=== PATIENT | male | born 1990 | race African-American/Black ===

== ENCOUNTER 2016-10-08 16:56 | Emergency (ER) | payer SELFPAY ==
[~2016-10-08] VITALS: Ht 172.7 cm; Wt 65.8 kg
[~2016-10-08 16:56] MED LIST: AMOX500T PO; HYDR-971 PO
[2016-10-08 17:51] VITALS: BP 129/61
--- NOTE | 2016-10-08 18:05 | PHYS DOC ---
Past Medical History Past Medical History: No Pertinent History Past Surgical History: No Surgical History Alcohol Use: Occasionally Drug Use: None Adult General Chief Complaint Chief Complaint: UPPER EXTREMITY PAIN HPI HPI Patient is a 26 year old male who presents with right arm pain today and throwing a chair yesterday. No interventions prior to arrival Review of Systems Review of Systems Constitutional: Denies fever or chills Eyes: Denies change in visual acuity, redness, or eye pain HENT: Denies nasal congestion or sore throat Respiratory: Denies cough or shortness of breath Cardiovascular: No additional information not addressed in HPI GI: Denies abdominal pain, nausea, vomiting, bloody stools or diarrhea : Denies dysuria or hematuria Musculoskeletal: Right arm pain Integument: Denies rash or skin lesions Neurologic: Denies headache, focal weakness or sensory changes Endocrine: Denies polyuria or polydipsia [] Allergies Allergies Allergies Coded Allergies Type Severity Reaction Last Updated Verified No Known Drug Allergies 08/26/15 No Physical Exam Physical Exam Constitutional: Well developed, well nourished, no acute distress, non-toxic appearance. HENT: Normocephalic, atraumatic, bilateral external ears normal, oropharynx moist, no oral exudates, nose normal. Eyes: PERRLA, EOMI, conjunctiva normal, no discharge. Neck: Normal range of motion, no tenderness, supple, no stridor. Cardiovascular:Heart rate regular rhythm, no murmur Lungs & Thorax: Bilateral breath sounds clear to auscultation Abdomen: Bowel sounds normal, soft, no tenderness, no masses, no pulsatile masses. Skin: Warm, dry, no erythema, no rash. Back: No tenderness, no CVA tenderness. Extremities: No cyanosis, no clubbing, ROM intact, no edema. Tenderness midshaft humerus Neurologic: Alert and oriented X 3, normal motor function, normal sensory function, no focal deficits noted. Psychologic: Affect normal, judgement normal, mood normal. [] Current Patient Data Vital Signs Vital Signs Date Time Temp Pulse Resp B/P Pulse Ox O2 Delivery O2 Flow Rate FiO2 10/08/16 17:51 98.0 78 14 98 Room Air 98.0 EKG EKG [] Radiology/Procedures Radiology/Procedures [] Impressions: right arm pain Course & Med Decision Making Course & Med Decision Making Pertinent Labs and Imaging studies reviewed. (See chart for details) [] Dragon Disclaimer Dragon Disclaimer This electronic medical record was generated, in whole or in part, using a voice recognition dictation system. Departure Departure Impression: Primary Impression: Strain of upper arm, right Disposition: 01 HOME, SELF-CARE Condition: STABLE Referrals: NO PCP (PCP) Patient Instructions: Muscle Strain, [id number], Musculoskeletal Pain Additional Instructions: Take medication as prescribed. Return if problems or concerns. Follow up with primary doctor in 1-2 days Scripts Cyclobenzaprine Hcl 5 Mg Tablet5 Mg PO TID #20 TAB Prov:LAWRENCE ENG APRN 10/08/16 LAWRENCE ENG APRN Oct 08, 2016 18:05
--- NOTE | 2016-10-08 18:53 | RAD ---
Humerus right Indication: Right arm pain. Alignment at the shoulder and elbow appears normal. The humerus appears intact. No fractures are seen. Impression: No acute bony abnormality is detected. Electronically signed by: Elvis Obrien MD (Oct 08, 2016 18:51:50)
[2016-10-08] MEDS ORDERED: CYCL5TAB PO (19:02)
== END 2016-10-08 19:06 | disposition home or self-care (01) ==
LOC: ER 16:56
DX: S46.911A Strain of unspecified muscle, fascia and tendon at shoulder and upper arm level, right arm, initial encounter (principal); X58.XXXA Exposure to other specified factors, initial encounter; Y93.89 Activity, other specified; Y92.89 Other specified places as the place of occurrence of the external cause; Y99.8 Other external cause status
CPT/HCPCS: 73060; 99284

== ENCOUNTER 2017-03-05 20:52 | Emergency (ER) | payer SELFPAY ==
[~2017-03-05] VITALS: Ht 172.7 cm; Wt 68.0 kg
[~2017-03-05 20:52] MED LIST changes: +CYCL5TAB PO
[2017-03-05 21:08] VITALS: BP 141/60
[2017-03-05] MEDS ORDERED: BENZ100C PO (21:22)
[2017-03-05] MEDS ORDERED: PROAIR RESPICL90 MCG IH (21:22)
[2017-03-05] MEDS ORDERED: AZIT250T PO (21:22)
[2017-03-05] MEDS ORDERED: GUAI-107 PO (21:22)
[2017-03-05] MEDS ORDERED: PRED50TA PO (21:22)
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
[2017-03-05] MEDS ORDERED: predniSONE 20 MG TABLET PO ONE (21:45)
[2017-03-05] MEDS ORDERED: BENZONATATE 100 MG CAPSULE. PO ONE (21:45)
== END 2017-03-05 21:59 | disposition home or self-care (01) ==
LOC: ER 20:52
DX: J20.9 Acute bronchitis, unspecified (principal); J02.8 Acute pharyngitis due to other specified organisms; B97.89 Other viral agents as the cause of diseases classified elsewhere; Z87.891 Personal history of nicotine dependence
CPT/HCPCS: 99284; J7512

== ENCOUNTER 2017-10-08 11:04 | Emergency (ER) | payer SELFPAY ==
[2017-10-08] MEDS: LIDOCAINE WITH 8.4% SOD BICARB 3 ML DISP.SYRIN. INJ ×2 (12:15)
[2017-10-08] MEDS: HYDROcodone/APAP 5/325MG 1 TAB TABLET PO ×2 (12:57)
[2017-10-08] MEDS: DIPHTH,PERTUSS(ACELL),TET TOX 0.5 ML DISP.SYRIN. VAX IM ×2 (13:28)
== END 2017-10-08 13:53 | disposition home or self-care (01) ==
LOC: ER 11:04
DX: S61.411A Laceration without foreign body of right hand, initial encounter (principal); S00.83XA Contusion of other part of head, initial encounter; V87.8XXA Person injured in other specified noncollision transport accidents involving motor vehicle (traffic), initial encounter; Y93.39 Activity, other involving climbing, rappelling and jumping off; Y92.410 Unspecified street and highway as the place of occurrence of the external cause; Y99.8 Other external cause status
CPT/HCPCS: 12001; 70450; 73130; 90471; 90715; 99284-25

== ENCOUNTER 2018-07-18 21:38 | Emergency (ER) | payer SELFPAY ==
[~2018-07-18] VITALS: Ht 172.7 cm; Wt 69.0 kg
[~2018-07-18 21:38] MED LIST changes: +AZIT250T PO; +BENZ100C PO; +GUAI-108 PO; +PRED50TA PO; +PROAIR RESPICL90 MCG IH
[2018-07-18 21:40] VITALS: BP 125/56
[2018-07-18] MEDS ORDERED: AMOX1TAB61 PO (21:54)
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
== END 2018-07-18 22:00 | disposition home or self-care (01) ==
LOC: ER 21:38
DX: S50.871A Other superficial bite of right forearm, initial encounter (principal); W50.3XXA Accidental bite by another person, initial encounter; Y93.89 Activity, other specified; Y92.810 Car as the place of occurrence of the external cause; Y99.8 Other external cause status
CPT/HCPCS: 99283

== ENCOUNTER 2018-07-22 12:28 | Emergency (ER) | payer SELFPAY ==
[~2018-07-22] VITALS: Ht 172.7 cm; Wt 68.9 kg
[~2018-07-22 12:28] MED LIST changes: +AMOX1TAB61 PO; +HYDR-3164 PO; -HYDR-971 PO
[2018-07-22 12:46] VITALS: BP 116/56
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
== END 2018-07-22 13:16 | disposition home or self-care (01) ==
LOC: ER 12:28
DX: S51.851D Open bite of right forearm, subsequent encounter (principal); W54.0XXD Bitten by dog, subsequent encounter
CPT/HCPCS: 99281

== ENCOUNTER 2018-11-26 16:37 | Emergency (ER) | payer SELFPAY ==
[~2018-11-26] VITALS: Ht 172.7 cm; Wt 68.9 kg
[2018-11-26 17:22] VITALS: BP 113/27
[2018-11-26] MEDS ORDERED: HYDROcodone/APAP 5/325MG 1 TAB TABLET PO ONE (18:45)
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
[2018-11-26] MEDS ORDERED: TIZA4TAB8 PO (19:10)
[2018-11-26] MEDS ORDERED: HYDR-3164 PO (19:10)
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
== END 2018-11-26 19:17 | disposition home or self-care (01) ==
LOC: ER 16:37
DX: S46.811A Strain of other muscles, fascia and tendons at shoulder and upper arm level, right arm, initial encounter (principal); X50.9XXA Other and unspecified overexertion or strenuous movements or postures, initial encounter; Y93.89 Activity, other specified; Y92.89 Other specified places as the place of occurrence of the external cause; Y99.8 Other external cause status
CPT/HCPCS: 73030; 73060; 99283

== ENCOUNTER 2019-10-04 06:24 | Emergency (ER) | payer SELFPAY ==
[~2019-10-04] VITALS: Ht 172.7 cm; Wt 65.0 kg
[~2019-10-04 06:24] MED LIST changes: +TIZA4TAB8 PO
[2019-10-04 07:10] VITALS: BP 125/59
--- NOTE | 2019-10-04 07:18 | PHYS DOC ---
Past Medical History Past Medical History: No Pertinent History Past Surgical History: No Surgical History Additional Past Surgical Histo: STATES SX ON HEAD/LACERATION REPAIR Alcohol Use: None Drug Use: None Adult General Chief Complaint Chief Complaint: PENIS PROBLEM HPI HPI Patient is a 29 year old male who presented to ER today for several day history of pain with urination and clear penile discharge. He is sexually active with on e partner. Patient denies any fever, no nausea or vomiting, no abdominal pain. he denies any rash anywhere. aLL OTHER ros IS NEGATIVE UNLESS OTHERWISE NOTED IN hpi Review of Systems Review of Systems See above Current Medications Current Medications Current Medications Medications (Trade) Dose Ordered Sig/Sparkle Start Time Stop Time Status Last Admin Dose Admin Azithromycin (Zithromax) 1,000 mg 1X ONCE 10/04/19 07:30 10/04/19 07:31 DC 10/04/19 07:39 1,000 MG Ceftriaxone Sodium (Rocephin Im) 250 mg 1X ONCE 10/04/19 07:30 10/04/19 07:31 DC 10/04/19 07:41 250 MG Allergies Allergies Allergies Coded Allergies Type Severity Reaction Last Updated Verified No Known Drug Allergies 08/26/15 No Physical Exam Physical Exam See above Constitutional: Well developed, well nourished, no acute distress, non-toxic appearance. [] HENT: Normocephalic, atraumatic, bilateral external ears normal, oropharynx moist, no oral exudates, nose normal. [] Abdomen: Bowel sounds normal, soft, no tenderness, no masses, no pulsatile masses. [] Skin: Warm, dry, no erythema, no rash. [] Back: No tenderness, no CVA tenderness. [] Extremities: No tenderness, no cyanosis, no clubbing, ROM intact, no edema. [] Neurologic: Alert and oriented X 3, normal motor function, normal sensory function, no focal deficits noted. [] Psychologic: Affect normal, judgement normal, mood normal. : NO VISIBLE DISCHARGE OBSERVED, NO SWELLING, NO RASH, NO TESTICULAR TENDERNESS TO PALPATION. CIRCUMSIZED. Current Patient Data Vital Signs Vital Signs Date Time Temp Pulse Resp B/P (MAP) Pulse Ox O2 Delivery O2 Flow Rate FiO2 10/04/19 07:10 98.6 72 16 125/59 (81) 98 Room Air 98.6 Lab Values Laboratory Tests Test 10/04/19 07:25 Urine Collection Type Unknown Urine Color Yellow Urine Clarity Clear Urine pH 6.0 Urine Specific [place] >=1.030 Urine Protein Trace mg/dL (NEG-TRACE) Urine Glucose (UA) Negative mg/dL (NEG) Urine Ketones (Stick) 15 mg/dL (NEG) Urine Blood Negative (NEG) Urine Nitrite Negative (NEG) Urine Bilirubin Small (NEG) Urine Urobilinogen Dipstick 4.0 mg/dL (0.2 mg/dL) Urine Leukocyte Esterase Negative (NEG) Urine RBC Occ /HPF (0-2) Urine WBC 5-10 /HPF (0-4) Urine Squamous Epithelial Cells Occ /LPF Urine Bacteria 0 /HPF (0-FEW) Urine Mucus Mod /LPF EKG EKG [] Radiology/Procedures Radiology/Procedures [] Course & Med Decision Making Course & Med Decision Making Pertinent Labs and Imaging studies reviewed. (See chart for details) [] Dragon Disclaimer Dragon Disclaimer This electronic medical record was generated, in whole or in part, using a voice recognition dictation system. Departure Departure Impression: Primary Impression: Urethritis Disposition: HOME, SELF-CARE Condition: STABLE Referrals: NO PCP (PCP) FOLLOW UP WITH THE LOCAL HEALTH DEPARTMENT FOR FURTHER STD testing this week. Patient Instructions: Urethritis, Adult Additional Instructions: Thank you for visiting our Emergency Department. We appreciate you trusting us with your care. If any additional problems come up don't hesitate to return to visit us. Please follow up with your primary care provider so they can plan additional care if needed and know about the problem that you had. If symptoms worsen come back to the Emergency Department. Any concerning symptoms that start such as chest pain, shortness of air, weakness or numbness on one side of the body, running high fevers or any other concerning symptoms return to the ER. JOSE MCELROY DO Oct 04, 2019 07:18
[2019-10-04] MEDS ORDERED: AZITHROMYCIN 250 MG TABLET. PO ONE (07:30)
[2019-10-04] MEDS ORDERED: cefTRIAXone IM 250 MG VIAL IM ONE (07:30)
[2019-10-04 07:51] LABS: BILIRUBIN,URINE SMALL (NEG); CLARITY,URINE CLEAR; COLOR,URINE YELLOW
[2019-10-04 07:52] LABS: BACTERIA,URINE 0 /HPF (0-FEW); NITRITE,URINE NEGATIVE (NEG); PROTEIN,URINE TRACE mg/dL (NEG-TRACE); RBC,URINE OCC /HPF (0-2); SQUAMOUS EPITHELIAL CELL,UR OCC /LPF
== END 2019-10-04 08:34 | disposition home or self-care (01) ==
LOC: ER 06:24
DX: N34.2 Other urethritis (principal); R30.9 Painful micturition, unspecified; R36.9 Urethral discharge, unspecified; Z98.890 Other specified postprocedural states
CPT/HCPCS: 81001; 87086; 87491; 87591; 96372; 99284; J0696; Q0144

== ENCOUNTER 2020-12-09 11:00 | Emergency (ER) | payer SELFPAY ==
[~2020-12-09] VITALS: Ht 172.7 cm; Wt 68.1 kg
[2020-12-09 12:31] VITALS: BP 107/57
[2020-12-09 12:40] LABS: BILIRUBIN,URINE NEGATIVE (NEG); CLARITY,URINE CLEAR; COLOR,URINE YELLOW; NITRITE,URINE NEGATIVE (NEG); PROTEIN,URINE NEGATIVE (NEG-TRACE); UROBILINOGEN,URINE 0.2 mg/dL (0.2 mg/dL)
[2020-12-09] MEDS ORDERED: cefTRIAXone IM 500 MG VIAL. IM ONE (12:45)
[2020-12-09 12:54] LABS: RBC,URINE 0 /HPF (0-2)
[2020-12-09 12:56] LABS: AMORPHOUS SEDIMENT,UR PRESENT /HPF; BACTERIA,URINE 0 /HPF (0-FEW)
[2020-12-09] MEDS ORDERED: DOXY100C25 PO (12:58)
--- NOTE | 2020-12-09 12:58 | ED.ADGEN ---
Past Medical History Past Medical History: No Pertinent History Past Surgical History: Other Additional Past Surgical Histo: STATES SX ON HEAD/LACERATION REPAIR Smoking Status: Current Every Day Smoker Alcohol Use: Rarely Drug Use: None General Adult EDM: Chief Complaint: URINARY RETENTION HPI: HPI: Patient is a 30 year old AA male who presents emergency department with complaints of abnormal penile discharge for the last 2 days and concerns of sexually transmitted infection. He also complains of bumps to the skin of his penis for the last 2 weeks. He denies any blistering, discharge, bleeding, or itching at the site of the bumps. He denies any known exposure to sexually transmitted infections. Patient denies any dysuria, hematuria, increased urinary frequency, back pain, abdominal pain, fever, cough, abdominal pain, nausea, vomiting, diarrhea, or body aches. He currently denies any pain. Review of Systems: Review of Systems: Complete ROS is negative unless otherwise noted in HPI. Current Medications: Current Medications Medications (Trade) Dose Ordered Sig/Sparkle Start Time Stop Time Status Last Admin Dose Admin Ceftriaxone Sodium (Rocephin Im) 500 mg 1X ONCE 12/09/20 12:45 12/09/20 12:46 DC Allergies: Allergies: Allergies Coded Allergies Type Severity Reaction Last Updated Verified No Known Drug Allergies 08/26/15 No Physical Exam: PE: See Above Constitutional: Well developed, well nourished, no acute distress, non-toxic appearance. [] HENT: Normocephalic, atraumatic, bilateral external ears normal, nose normal. [] Eyes: PERRLA, EOMI, conjunctiva normal, no discharge. [] Neck: Normal range of motion, no stridor. [] Cardiovascular:Heart rate regular rhythm Lungs & Thorax: Respirations even and unlabored, no retractions, no respiratory distress Abdomen: soft, no tenderness Male : Circumcised, testicles distended and nontender bilaterally, irregular yellow to white penile discharge at the urethral meatus, genital warts noted circumferentially around the shaft of the penis near the glans Skin: Warm, dry, no erythema, no rash. [] Extremities: No cyanosis, ROM intact, no edema. [] Neurologic: Alert and oriented X 3, no focal deficits noted. [] Psychologic: Affect normal, judgement normal, mood normal. [] Current Patient Data: Vital Signs: Vital Signs Date Time Temp Pulse Resp B/P (MAP) Pulse Ox O2 Delivery O2 Flow Rate FiO2 12/09/20 12:31 97.7 54 16 107/57 (74) 99 Room Air 97.7 EKG: EKG: [] Heart Score: C/O Chest Pain: No Risk Scores: Score 0 - 3: 2.5% MACE over next 6 weeks - Discharge Home Score 4 - 6: 20.3% MACE over next 6 weeks - Admit for Clinical Observation Score 7 - 10: 72.7% MACE over next 6 weeks - Early Invasive Strategies Radiology/Procedures: Radiology/Procedures: [] Course & Med Decision Making: Course & Med Decision Making Pertinent Labs and Imaging studies reviewed. (See chart for details) [] Dragon Disclaimer: Dragon Disclaimer: This electronic medical record was generated, in whole or in part, using a voice recognition dictation system. Departure Departure Impression: Primary Impression: Warts, genital Additional Impressions: Contact with and (suspected) exposure to infections with a predominantly sexual mode of transmission Abnormal penile discharge, without blood Disposition: 01 DC HOME SELF CARE/HOMELESS Condition: STABLE Referrals: NO PCP (PCP) Patient Instructions: Genital Warts, [id number], Sexually Transmitted Disease, [id number] Additional Instructions: Fill the prescription and take as directed. Recommend that you go to your local health department for comprehensive sexually transmitted disease testing. You have been treated for a suspected gonorrhea and chlamydia. Avoid having intercourse until the results of gonorrhea and chlamydia testing are available, these results will not be available for 48 hours. If one or both of these tests is positive, you need to refrain from intercourse for approximately 1 week following the treatment of any current partners. Follow-up with your primary care doctor if symptoms persist, return to ER symptoms worsen. Scripts Doxycycline Monohydrate (MONODOX) 100 Mg Capsule 1 CAP PO BID for 7 Days, #14 CAP 0 Refills Prov: BYRON OSHEA APRN 12/09/20 Problem Qualifiers BYRON OSHEA APRN Dec 09, 2020 12:58
== END 2020-12-09 13:40 | disposition home or self-care (01) ==
LOC: ER 11:00
DX: B07.8 Other viral warts (principal); R36.9 Urethral discharge, unspecified; Z20.2 Contact with and (suspected) exposure to infections with a predominantly sexual mode of transmission; F17.200 Nicotine dependence, unspecified, uncomplicated
CPT/HCPCS: 81001; 87491; 87591; 96372; 99283; J0696